=== PATIENT | male | born 1950 | race Caucasian/White ===

== ENCOUNTER → 2023-08-04 16:47 | Outpatient (REF) | payer OTHER, SELFPAY ==
[2023-08-04 17:15] LABS: % Basophils 0.8 % (0-2); % Eosinophils 0.8 % (0-6); % Lymphocytes 31.1 % (20.5-51.1); % Monocytes 9.4 % (1.7-9.3); % Neutrophils 57.9 % (42.2-75.2); Absolute Lymphocytes 1.2 10^3/uL (1.2-3.4); Absolute Monocytes 0.4 10^3/uL (0.1-0.6); Absolute Neutrophils 2.3 10^3/uL (1.4-6.5); Hematocrit 31.4 % (39.0-52.0); Hemoglobin 10.7 g/dL (13.0-18.0); Mean Corp Hgb Conc. 34.1 g/dL (33.0-37.0); Mean Corpuscular Hgb 33.3 pg (27.0-31.0); Mean Corpuscular Volume 97.8 fL (80.0-94.0); Mean Platelet Volume 10.2 fL (7.4-10.4); Nucleated Red Blood Cells % 0 % (-); Platelet Count 201 10^3/uL (130-400); Red Blood Cell Count 3.21 10^6/uL (4.70-6.10); Red Cell Dist. Width 14.6 % (11.5-14.5); White Blood Cell Count 3.9 10^3/uL (4.8-10.8)
[2023-08-07 14:03] LABS: Free Kappa Light Chains,Quant 18.47 mg/L (3.30-19.40); Free Lambda Light Chains,Quant 13.59 mg/L (5.71-26.30); Kappa/Lambda Fr Light Ratio 1.36 (0.26-1.65)
== END ==
LOC: REG 16:47
PROVIDERS: ATTENDING PHYSICIAN Family Medicine
DX: D61.818 Other pancytopenia (principal)
CPT/HCPCS: 36415; 83521; 85025

== ENCOUNTER → 2023-10-09 15:54 | Outpatient (REF) | payer OTHER, SELFPAY | LOC: DHCBC HW 15:54 | PROVIDERS: ATTENDING PHYSICIAN Internal Medicine Cardiovascular Disease; FAMILY PHYSICIAN Family Medicine | DX: I25.10 Atherosclerotic heart disease of native coronary artery without angina pectoris (principal); I25.2 Old myocardial infarction; I35.1 Nonrheumatic aortic (valve) insufficiency; I77.810 Thoracic aortic ectasia | CPT/HCPCS: 93306 ==

== ENCOUNTER → 2024-10-01 15:30 | Outpatient (REF) | payer OTHER, SELFPAY | LOC: HWRAD 15:30 | PROVIDERS: ATTENDING PHYSICIAN Family Medicine | DX: Z15.89 Genetic susceptibility to other disease (principal) | CPT/HCPCS: 72202 ==

== ENCOUNTER → 2024-11-11 14:07 | Outpatient (REF) | payer OTHER, SELFPAY | LOC: HWRAD 14:07 | PROVIDERS: ATTENDING PHYSICIAN Student in an Organized Health Care Education/Training Program; FAMILY PHYSICIAN Family Medicine | DX: M41.9 Scoliosis, unspecified (principal) | CPT/HCPCS: 77080 ==

== ENCOUNTER 2024-12-03 07:54 | Inpatient (IN) | payer OTHER, SELFPAY ==
[2024-12-01] VITALS (8 sets, daily range): BP systolic 116–128; BP diastolic 65–88; BMI 23.0; BMI 21.7
--- NOTE | 2024-12-01 13:22 | ED.GENMED ---
History of Present Illness
General
Chief Complaint: Swelling
Source: patient
Exam Limitations: none
Time Seen by Provider: 12/01/24 12:54
Nursing documentation reviewed up to this point in time: agreed with
History of Present Illness
History of Present Illness:
Patient is a 74-year-old male who presents to the ER complaining of left lower leg swelling. He reports on Friday 3 days ago he noticed swelling and discomfort to the top part of his left foot he also noticed mild redness. Since then he has had
painful left foot and can barely walk on the foot and also has swelling to his left lower leg. He denies any injury. Denies any fever or chills. No prior history of DVT or PE. He does reports chronic varicose veins to left leg.
Past History
Past History
ED Past Medical History: None
ED Past Surgical History: None
Social History
Tobacco: Non-smoker
Alcohol: Occasional
Drug: None
Personal: Single
Employment: Employed
Family History
Family History: Early CAD and CAD
Review of Systems
Review of Systems
Allergies reviewed?: Yes
Constitutional: Reports fatigue
Phy Exam
General Physical Exam
General Presentation: no apparent distress
General age: appears stated age
General Skin: warm and dry
General Mental: alert
General Hydration: appears well hydrated
Cardiovascular Exam
Cardiovascular Exam: regular rate/rhythm, no murmur and normal peripheral pulses
Pulmonary Exam
Pulmonary Exam: lungs clear and no respiratory distress
Neurological Exam
Neurological Exam: alert and oriented x3
Musculoskeletal Exam
Musculoskeletal Exam: other (lle with + strong distal pulses+ erythema to dorsal foot swelling to foot ankle lower leg + Tenderness to dorsal foot)
Skin Exam
Skin Exam: normal color and warm/dry
Psychiatric Exam
Psychiatric Exam: normal mood/affect
Scores
Heart Failure Risk
Heart Failure Risk Score: Not Applicable
Course
Orders/Labs/Results
Orders:
Orders
12/01/24 13:15
IV Insert/Care/Rem.- Treatment PRN
Foot, Left 3 View [CR Foot - Left Min 3 Views] Urgent
Comment:
Reason For Exam: swelling/redness
Venous Doppler Lwr Ext Left [US Periph Venous LOWER Ext LT] Urgent
Comment:
Reason For Exam: pain
12/01/24 13:30
Complete Blood Count/With Diff Urgent
Comprehensive Metabolic Panel Urgent
12/01/24 15:40
Acetaminophen [Tylenol] 650 mg PO NOW STA
Abnormal Lab Results
12/01/24
13:30
RBC 2.82 L 10^6/uL
(4.70-6.10)
Hgb 9.5 L g/dL
(13.0-18.0)
Hct 27.7 L %
(39.0-52.0)
MCV 98.2 H fL
(80.0-94.0)
MCH 33.7 H pg
(27.0-31.0)
MPV 10.8 H fL
(7.4-10.4)
Absolute Lymphs (auto) 0.6 L 10^3/uL
(1.2-3.4)
Neutrophils % 78.0 H %
(42.2-75.2)
Lymphocytes % 11.4 L %
(20.5-51.1)
Sodium 132 L mmol/L
(135-145)
Glucose 101 H mg/dl
(70-99)
Total Protein 6.2 L g/dl
(6.3-8.2)
Albumin 3.4 L g/dl
(3.5-5.0)
12/01/24 13:30
12/01/24 13:30
Vital Signs
Initial and Last Documented VS:
Initial Vital Signs
Temp Pulse Resp BP Pulse Ox
98.8 F 101 16 128/88 94
12/01/24 12:16 12/01/24 12:16 12/01/24 12:16 12/01/24 12:16 12/01/24 12:16
Last Documented Vital Signs
Temp Pulse Resp BP Pulse Ox
98.8 F 87 25 119/84 94
12/01/24 12:16 12/01/24 17:06 12/01/24 17:06 12/01/24 17:06 12/01/24 15:45
MDM/Problems Addressed
MDM/Problems Addressed:
Patient presented with redness and swelling to the left foot now with increasing swelling of the lower leg unable to bear weight. He denies any fever chills and is nontoxic however is unable to bear weight on this leg. Patient has dorsal redness
and tenderness. Ultrasound x-ray negative. White count normal. Will admit for IV antibiotics
*Radiology
Radiology exam reviewed: radiology read reviewed
*Pulse Oximetry
Patient hypoxic: no
*Critical Care Note
Total Time (30-74mins, 75-104mins- exclusive of procedures): Not Applicable
ED Attending Note
-
Portions of this chart may have been created with voice recognition software.� Occasional wrong word or��sound alike� substitutions may have occurred due to the inherent limitations of voice recognition software.
Discharge Plan
Departure
Patient Disposition: Admit
Date of Disposition: 12/01/24
Time of Disposition: 17:27
Admit to: Med/Surg
Admit to doctor: hospitalist
Presentation/result/management discussed w/ accepting MD/DO: Hospitalist
Patient with high blood pressure during this ER visit?: Yes
Condition: Fair
Covid-19: Not Applicable
Discharge Problem:
Cellulitis of foot, left
Prescriptions:
No Action
aspirin 325 mg Tablet
650 mg PO DAILYPRN PRN (Reason: MILD PAIN)
amlodipine [Norvasc] 10 mg Tablet
10 mg PO DAILY
lisinopril 40 mg Tablet
40 mg PO DAILY
metoprolol succinate [Toprol XL] 50 mg Tablet Extended Release 24 Hr
50 mg PO DAILY
atorvastatin 40 MG tablet
40 mg PO QPM
aspirin 81 MG tablet,chewable
81 mg PO DAILY
Referrals:
Yayo Philip DO [Family Provider, Family Practice]
Interventions
Interventions:
*Risk Screen - Suicide Last Done: 12/01/24 12:16
*General Assessment Last Done: 12/01/24 12:16
*Neglect/Abuse Screening Last Done: 12/01/24 12:16
*ED- Fall Risk Assessment Last Done: 12/01/24 13:33
ED- Cardiac Assessment Last Done: 12/01/24 13:31
ED- Pulmonary Assessment Last Done: 12/01/24 13:31
ED-Skin Assessment Last Done: 12/01/24 13:31
Discharge Date and Time
Print Language: MAORI
[2024-12-01 13:40] LABS: % Basophils 0.4 % (0-2); % Eosinophils 1.3 % (0-6); % Immature Granulocytes 0.4 % (0-0.5); % Lymphocytes 11.4 % (20.5-51.1); % Monocytes 8.5 % (1.7-9.3); Absolute Eosinophils 0.1 10^3/uL (0-0.7); Absolute Lymphocytes 0.6 10^3/uL (1.2-3.4); Absolute Monocytes 0.5 10^3/uL (0.1-0.6); Absolute Neutrophils 4.1 10^3/uL (1.4-6.5); Hematocrit 27.7 % (39.0-52.0); Hemoglobin 9.5 g/dL (13.0-18.0); Mean Corp Hgb Conc. 34.3 g/dL (33.0-37.0); Mean Corpuscular Hgb 33.7 pg (27.0-31.0); Mean Corpuscular Volume 98.2 fL (80.0-94.0); Mean Platelet Volume 10.8 fL (7.4-10.4); Nucleated Red Blood Cells % 0 % (-); Platelet Count 255 10^3/uL (130-400); Red Blood Cell Count 2.82 10^6/uL (4.70-6.10); Red Cell Dist. Width 14.4 % (11.5-14.5); White Blood Cell Count 5.3 10^3/uL (4.8-10.8)
[2024-12-01 14:19] LABS: ALT (SGPT) 22 U/L (0-50); AST (SGOT) 21 U/L (17-59); Albumin 3.4 g/dl (3.5-5.0); Alkaline Phosphatase 92 U/L (38-126); Blood Urea Nitrogen 15 mg/dl (9-20); Calcium 9.1 mg/dl (8.4-10.2); Carbon Dioxide 24 mmol/L (22-30); Chloride 100 mmol/L (98-107); Glucose 101 mg/dl (70-99); Potassium 3.8 mmol/L (3.5-5.1); Sodium 132 mmol/L (135-145); Total Bilirubin 0.8 mg/dl (0.2-1.3); Total Protein 6.2 g/dl (6.3-8.2); eGFR > 60.00
[2024-12-01] MEDS: TYLENOL 650 MG PO ×2 (15:46→23:35)
--- NOTE | 2024-12-01 17:36 | HPS.HSE ---
Family Physician
-
Family Physician: Yayo Philip
Chief Complaint
-
Left lower extremity swelling
History of Present Illness
74 y/o M with PMHx:
CAD with h/o STEMI s/p mid-RCA LULU in September 2017
Essential hypertension
Hyperlipidemia
who c/o LLE swelling. Approximately 4 to 5 days ago the patient began developing discoloration in his left lower extremity. He then developed edema as well as pain in his left foot. It got to the point where he was unable to ambulate on the foot.
He presented to the hospital for this reason. He did not have any antibiotic therapy prior to coming to the ER. He denies any chest pain, shortness of breath, nausea, vomiting, diarrhea, or fevers. No other acute complaints.
Medical History
Past Medical History
Past Medical History: Reports CAD, HTN and Hypercholesterolemia
Past Surgical History: Reports None (N/A)
Social History
Tobacco: Non-smoker
Alcohol: Occasional
Drug: None
Family History
Family History: Not pertinent
Allergies / Home Medications
Allergies reflects when Allergies were last updated in [facility].
Home Medications with original date entered in [facility]
Allergy/Medication List:
Allergies
Allergy/AdvReac Type Severity Reaction Status Date / Time
No Known Allergies Allergy Verified 12/01/24 12:18
Home Medications
amlodipine 10 mg tablet (Norvasc) 10 mg PO DAILY Blood Pressure 12/01/24
aspirin 325 mg tablet 650 mg PO DAILYPRN PRN MILD PAIN 12/01/24
aspirin 81 mg chewable tablet 81 mg PO DAILY Heart Disease/Condition 12/01/24
atorvastatin 40 mg tablet 40 mg PO QPM High Cholesterol 12/01/24
lisinopril 40 mg tablet 40 mg PO DAILY Blood Pressure 12/01/24
metoprolol succinate 50 mg tablet,extended release 24 hr (Toprol XL) 50 mg PO DAILY Blood Pressure 12/01/24
Review of Systems
-
History Source: Patient
A 12 point ROS was completed and negative except as noted: Yes
Physical Exam
Vital Signs
Vital Signs
Temp Pulse Resp BP Pulse Ox
98.8 F 87 25 119/84 94
12/01/24 12:16 12/01/24 17:06 12/01/24 17:06 12/01/24 17:06 12/01/24 15:45
Physical Exam
General: Other (.)
Laboratory Results
-
12/01/24 13:30
12/01/24 13:30
Laboratory Results
Total Bilirubin 0.8 mg/dl (0.2-1.3) 12/01/24 13:30
AST 21 U/L (17-59) 12/01/24 13:30
ALT 22 U/L (0-50) 12/01/24 13:30
Alkaline Phosphatase 92 U/L (38-126) 12/01/24 13:30
Impression/Plan
-
Gen: NAD, AAOx3.
Eyes: EOMI, PERRLA, no scleral icterus.
Neck: supple.
CV: RRR, +S1/S2, no m/r/g.
Resp: CTAB, no rales, wheezes, or rhonchi.
Abd: +BS, soft, NT, ND
Skin: Left foot cellulitis that is mild and located on the dorsal aspect of the foot and extends to the distal aspect of the left leg. On the medial aspect of the foot there is a lipoma.
Neuro: CN 2-12 intact, non-focal.
Psych: Normal mood and affect.
LLE U/S: No evidence of DVT of the left lower extremity.
L foot Xray: No acute fracture or dislocation. Moderate degenerative changes of the midfoot, worst at the first tarsometatarsal articulation. Scattered mild osteoarthritic changes of the interphalangeal and first metatarsophalangeal joints. No
erosions are evident. No radiographic evidence for inflammatory arthropathy. Mild diffuse soft tissue swelling about the foot.
Acute LLE cellulitis:
-cont Ancef started in the ER
-compression/elevation
Other problems:
CAD with h/o STEMI s/p mid-RCA LULU in September 2017: cont ASA/statin/BB
Essential hypertension: cont BB/ACEi
Hyperlipidemia: cont statin
Hyponatremia, mild, trend
FULL/Lovenox
[2024-12-01] MEDS: ANCEF 5 IV (17:48)
[2024-12-01] MEDS: ROXICODONE 5 MG PO (20:45)
--- NOTE | 2024-12-01 21:54 | PTCARENOTE ---
Patient arrived from ER as a sinker puller. Patient oriented to the room. Patient is AAO x4. Call null is within reach and fall education provided and reinforced.
[2024-12-02] MEDS: ROXICODONE 5 MG PO ×2 (00:48→19:53)
[2024-12-02] MEDS: ANCEF 10 IV ×3 (01:51→17:13)
[2024-12-02 07:31] LABS: Hematocrit 24.3 % (39.0-52.0); Hemoglobin 8.4 g/dL (13.0-18.0); Mean Corp Hgb Conc. 34.6 g/dL (33.0-37.0); Mean Corpuscular Hgb 33.7 pg (27.0-31.0); Mean Corpuscular Volume 97.6 fL (80.0-94.0); Platelet Count 248 10^3/uL (130-400); Red Blood Cell Count 2.49 10^6/uL (4.70-6.10); Red Cell Dist. Width 14.3 % (11.5-14.5); White Blood Cell Count 4.7 10^3/uL (4.8-10.8)
[2024-12-02 07:59] LABS: Blood Urea Nitrogen 13 mg/dl (9-20); Calcium 8.4 mg/dl (8.4-10.2); Carbon Dioxide 27 mmol/L (22-30); Chloride 101 mmol/L (98-107); Estimated Creatinine Clearance 82 ml/min; Glucose 91 mg/dl (70-99); Potassium 3.8 mmol/L (3.5-5.1); Sodium 133 mmol/L (135-145); eGFR > 60.00
[2024-12-02] MEDS: ZESTRIL 40 MG PO (08:11)
[2024-12-02] MEDS: NORVASC 10 MG PO (08:11)
[2024-12-02] MEDS: TOPROL XL 50 MG PO (08:11)
[2024-12-02] MEDS: LOW STRENGTH ASPIRIN 81 MG PO (08:11)
[2024-12-02] MEDS: TYLENOL 650 MG PO ×3 (08:17→22:38)
[2024-12-02 08:46] VITALS: BP 117/72
--- NOTE | 2024-12-02 11:20 | W.PN.HOSP.TC ---
Today's Communication/Plan
-
see plan
Assessment / Plan
Assessment / Plan
Gen: NAD, AAOx3.
Eyes: EOMI, PERRLA, no scleral icterus.
Neck: supple.
CV: remains RRR, +S1/S2, no m/r/g.
Resp: CTAB anteriorly, no rales, wheezes, or rhonchi.
Abd: +BS, soft, NT, ND
Skin: Left foot cellulitis has nearly resolved. On the medial aspect of the foot there is a lipoma and soft tissue edema.
Neuro: CN 2-12 intact, non-focal.
Psych: Normal mood and affect.
LLE U/S: No evidence of DVT of the left lower extremity.
L foot Xray: No acute fracture or dislocation. Moderate degenerative changes of the midfoot, worst at the first tarsometatarsal articulation. Scattered mild osteoarthritic changes of the interphalangeal and first metatarsophalangeal joints. No
erosions are evident. No radiographic evidence for inflammatory arthropathy. Mild diffuse soft tissue swelling about the foot.
Acute LLE cellulitis:
-cont Ancef
-c/s podiatry
Other problems:
CAD with h/o STEMI s/p mid-RCA LULU in September 2017: cont ASA/statin/BB
Essential hypertension: cont BB/ACEi
Hyperlipidemia: cont statin
Hyponatremia, mild, trend
FULL/Lovenox
Anticipated Discharge: Within 24 hours
Subjective/Interval History
-
Date of Service: December 02, 2024
Objective Data
-
Labs:
Laboratory Results
12/02/24
06:34
WBC 4.7 L
Hgb 8.4 L
Hct 24.3 L
Plt Count 248
Sodium 133 L
Potassium 3.8
Chloride 101
Carbon Dioxide 27
BUN 13
Creatinine 0.8
Glucose 91
Calcium 8.4
Vital Signs:
Vital Signs
Temp Pulse Resp BP Pulse Ox
98.2 F 71 16 117/72 97
12/02/24 08:46 12/02/24 08:46 12/02/24 08:46 12/02/24 08:46 12/02/24 08:46
I&O
12/01/24 12/02/24 12/03/24
06:59 06:59 06:59
Output Total 200 / 200
Balance -200 / -200
--- NOTE | 2024-12-02 12:56 | CM ---
CM reviewed chart, patient seen bedside, initial assessment completed. Patient resides independently in a multiple story home, mostly resides on first floor, few steps to enter (from porch then into home). Patient denies use of DME, denies VN/SNF
history. Patient confirms PCP Dr. Philip, pharmacy used [facility], unsure if he has prescription coverage. FRIED form verbally reviewed, provided with copy, placed in chart. Patient reports concern about going home, CM discussed therapy has
been ordered and will assess patient, patient reports if necessary he would go to rehab. CM did ask patient if he has local friends/family to support patient if needed, patient reports he does. CM will continue to follow for all discharge planning
needs.
Plan; PT to evaluate patient, home vs VN, pt agreeable to SNF if needed
[2024-12-02 14:17] VITALS: BP 91/60; PULSE 81
[2024-12-02 15:38] VITALS: BP 91/53
[2024-12-02] MEDS: LOVENOX 40 MG SC (17:12)
[2024-12-02] MEDS: LIPITOR 40 MG PO (17:12)
--- NOTE | 2024-12-02 19:52 | W.CS.POD ---
Consult Summary - Podiatry
-
This patient is a 74 year old male, with PMH of CAD, HTN and hyperlipidemia, admitted 12/01/24 for cellulitis of the left foot. The patient describes development of a small wound along the medial aspect of the left foot on 11/27/24 that began draining
clear fluid with redness reported over the top of the foot. This was followed by sudden progression of severe swelling, redness and pain extending to the ankle in the days to follow. The pain became so severe he could not bear weight on the foot,
precipitating his visit to the ER. He denies any fever, chills or sweat, nor any traumatic onset of symptoms, but recalls developing the blister/wound perhaps from a pair of shoes. No tingling, burning or numbing sensations to the LE's, nor any
prior history of lower extremity wounds. He does relate a history of varicose veins of he left LE.
Afebrile, VSS
WBC 5.3 on admission, with left shift.
12/01/24 XRAY, Left foot: No acute fracture or dislocation. Moderate degenerative changes, ectopic bone about the first metatarsal-medial cuneiform joint. No osseous erosion, periosteal reaction or cortical disruption noted. No radiographic evidence
for inflammatory arthropathy. Mild diffuse soft tissue swelling about the foot.
12/01/24 Peripheral venous U/S: The left common femoral, superficial femoral, popliteal and proximal posterior tibial veins are patent and compressible with normal flow. No evidence of DVT.
Clinically, pedal pulses are palpable bilaterally. Moderate residual edema and venous stasis pigmentation of the left foot compared to the right, however light peeling of skin with absence of erythema/cellulitis suggests the acute inflammatory
process is resolving. The area of skin along the 1.5cm bony prominence of the first metatarsal base medially exhibits a possible healed/closed wound site, currently stable. Diffuse, mild pain involving this area as well as the dorsal midfoot
diffusely noted, left. Pes planus deformity, left more severe than right. No loss of protective sensation, bilaterally.
Assessment:
Cellulitis Left foot with likely source being a since closed wound/blister along the medial midfoot, responding well to IV antibiotics.
Charcot osteo-arthropathy not likely as neuropathy is not a factor and radiographic changes are isolated and non-destructive.
Continue IV Ancef. No wound to culture at this point.
Will follow progress over next day or two.
Consider MRI should symptoms/process persist.
[2024-12-02] MEDS: MELATONIN 5 MG PO (22:38)
[2024-12-02 23:00] VITALS: BP 103/54
[2024-12-03] VITALS (8 sets, daily range): BP systolic 78–104; BP diastolic 43–63; PULSE 68; O2SAT 97
[2024-12-03] MEDS: ANCEF 10 IV ×3 (02:50→18:11)
[2024-12-03] MEDS: ROXICODONE 5 MG PO (02:57)
[2024-12-03] MEDS: ZESTRIL 40 MG PO (10:14)
[2024-12-03] MEDS: LOW STRENGTH ASPIRIN 81 MG PO (10:16)
[2024-12-03] MEDS: TOPROL XL 50 MG PO (10:16)
[2024-12-03] MEDS: NORVASC 10 MG PO (10:17)
--- NOTE | 2024-12-03 10:54 | CM ---
CM reviewed chart, patient seen bedside, discussed PT recommendations of SNF. Patient would like to see how he progresses in therapy, discussed option for VN, patient would prefer outpatient therapy if return home. PT recommending RW for patient if
returning home. Patient remains on IV antibiotics. Patient upgraded to inpatient status, IMM reviewed, provided with copy, placed in chart. CM will continue to follow for all discharge planning needs.
Plan; SNF vs home with outpatient PT/OT, if home recommending RW
--- NOTE | 2024-12-03 10:58 | W.PN.HOSP.TC ---
Today's Communication/Plan
-
see plan
Assessment / Plan
Assessment / Plan
Gen: NAD, AAOx3.
Eyes: EOMI, PERRLA, no scleral icterus.
Neck: supple.
CV: continues to remain RRR, +S1/S2, no m/r/g.
Resp: remains CTAB anteriorly, no rales, wheezes, or rhonchi.
Abd: +BS, soft, NT, ND
Skin: Left foot cellulitis has nearly resolved. On the medial aspect of the foot there is a lipoma and soft tissue edema (improved from yesterday).
Neuro: CN 2-12 intact, non-focal.
Psych: Normal mood and affect.
LLE U/S: No evidence of DVT of the left lower extremity.
L foot Xray: No acute fracture or dislocation. Moderate degenerative changes of the midfoot, worst at the first tarsometatarsal articulation. Scattered mild osteoarthritic changes of the interphalangeal and first metatarsophalangeal joints. No
erosions are evident. No radiographic evidence for inflammatory arthropathy. Mild diffuse soft tissue swelling about the foot.
Acute LLE cellulitis:
-cont Ancef
-podiatry following
-check MRI L foot
L hip pain:
-check L Hip Xray
Other problems:
CAD with h/o STEMI s/p mid-RCA LULU in September 2017: cont ASA/statin/BB
Essential hypertension: cont BB/ACEi
Hyperlipidemia: cont statin
Hyponatremia, mild, trend
FULL/Lovenox
Anticipated Discharge: Within 24 hours
Subjective/Interval History
-
Date of Service: December 03, 2024
Pt reports L hip pain to PT. c/o persistent L foot pain. States L foot edema improving.
Objective Data
-
Vital Signs:
Vital Signs
Temp Pulse Resp BP Pulse Ox
97.8 F 69 16 103/62 97
12/03/24 08:00 12/03/24 08:00 12/03/24 08:00 12/03/24 08:00 12/03/24 08:00
I&O
12/02/24 12/03/24 12/04/24
06:59 06:59 06:59
Intake Total 680 / 680
Output Total 200 / 200 750 / 750
Balance -200 / -200 -70 / -70
[2024-12-03] MEDS: NSS 1000 IV ×2 (18:11→20:18)
[2024-12-03] MEDS: LOVENOX 40 MG SC (18:11)
[2024-12-03] MEDS: LIPITOR 40 MG PO (18:11)
[2024-12-03 18:40] LABS: Blood Urea Nitrogen 20 mg/dl (9-20); Calcium 8.7 mg/dl (8.4-10.2); Carbon Dioxide 30 mmol/L (22-30); Chloride 99 mmol/L (98-107); Estimated Creatinine Clearance 82 ml/min; Glucose 100 mg/dl (70-99); Potassium 4.7 mmol/L (3.5-5.1); Sodium 134 mmol/L (135-145); eGFR > 60.00
[2024-12-03 19:38] LABS: Hepatitis C Antibody Negative (Negative)
[2024-12-03] MEDS: TYLENOL 650 MG PO (20:19)
[2024-12-04 00:45] VITALS: BP 98/60
[2024-12-04] MEDS: TYLENOL 650 MG PO ×3 (00:57→20:21)
[2024-12-04] MEDS: ANCEF 10 IV ×3 (00:59→17:44)
[2024-12-04] MEDS: NSS 1000 IV (05:15)
[2024-12-04 07:00] VITALS: BP 116/74
[2024-12-04 07:26] LABS: Blood Urea Nitrogen 16 mg/dl (9-20); Calcium 8.5 mg/dl (8.4-10.2); Carbon Dioxide 29 mmol/L (22-30); Chloride 104 mmol/L (98-107); Estimated Creatinine Clearance 94 ml/min; Glucose 93 mg/dl (70-99); Potassium 4.6 mmol/L (3.5-5.1); Sodium 137 mmol/L (135-145); eGFR > 60.00
[2024-12-04] MEDS: TOPROL XL 50 MG PO (08:28)
[2024-12-04] MEDS: LOW STRENGTH ASPIRIN 81 MG PO (08:29)
[2024-12-04] MEDS: NORVASC 10 MG PO (08:29)
[2024-12-04] MEDS: NSS IV ×2 (10:38→17:50)
--- NOTE | 2024-12-04 10:41 | W.PN.HOSP.TC ---
Today's Communication/Plan
-
see plan
Assessment / Plan
Assessment / Plan
Gen: remains NAD, AAOx3.
Eyes: EOMI, PERRLA, no scleral icterus.
Neck: supple.
CV: RRR, +S1/S2, no m/r/g.
Resp: CTAB anteriorly, no rales, wheezes, or rhonchi.
Abd: +BS, soft, NT, ND
Skin: Left foot cellulitis continues to improved. On the medial aspect of the foot there is a lipoma and soft tissue edema (continues to improve daily).
Neuro: remains CN 2-12 intact, non-focal.
Psych: Normal mood and affect.
LLE U/S: No evidence of DVT of the left lower extremity.
L foot Xray: No acute fracture or dislocation. Moderate degenerative changes of the midfoot, worst at the first tarsometatarsal articulation. Scattered mild osteoarthritic changes of the interphalangeal and first metatarsophalangeal joints. No
erosions are evident. No radiographic evidence for inflammatory arthropathy. Mild diffuse soft tissue swelling about the foot.
L hip Xray: Moderate osteoarthrosis of the bilateral hips.
MRI L foot:
1. SEVERE POLYARTICULAR ARTHRITIS throughout the LEFT MIDFOOT involving the TARSOMETATARSAL and NAVICULOCUNEIFORM JOINTS with severe joint space loss, osseous erosions, and enhancing subchondral bone marrow edema. Diagnostic possibilities are (1)
SEVERE NEUROPATHIC ARTHROPATHY, (2) an inflammatory arthritis, or (3) less likely septic arthritis given the absence of an overlying ulcer or wound.
2. Severe pes planus deformity.
3. Severe acute muscle denervation.
4. Severe diffuse subcutaneous edema suggesting SEVERE CELLULITIS.
Acute LLE cellulitis:
-MRI L foot above
-cont Ancef
-podiatry following
L hip pain:
-due to AO as per L Hip Xray
Other problems:
CAD with h/o STEMI s/p mid-RCA LULU in September 2017: cont ASA/statin/BB
Essential hypertension: cont BB, ACEi stopped with hypotension
Hyperlipidemia: cont statin
Hyponatremia, mild, trend
FULL/Lovenox
Anticipated Discharge: 24 - 48 hours
Subjective/Interval History
-
Date of Service: December 04, 2024
No new complaints.
Objective Data
-
Labs:
Laboratory Results
12/04/24
06:39
Sodium 137
Potassium 4.6
Chloride 104
Carbon Dioxide 29
BUN 16
Creatinine 0.7
Glucose 93
Calcium 8.5
Vital Signs:
Vital Signs
Temp Pulse Resp BP Pulse Ox
97.9 F 66 18 116/74 100
12/04/24 07:00 12/04/24 08:28 12/04/24 07:00 12/04/24 08:28 12/04/24 08:00
I&O
12/03/24 12/04/24 12/05/24
06:59 06:59 06:59
Intake Total 680 / 680 540 / 540
Output Total 750 / 750 1450 / 1450
Balance -70 / -70 -910 / -910
--- NOTE | 2024-12-04 13:12 | W.PN.POD ---
Today's Communication
Today's Communication
Arthritic process in left foot at this point.
Patient may be followed on an outpatient basis.
Assessment / Plan
-
Assessment/Plan:
Cellulitis Left foot possibly sourced from a now closed wound/blister along the medial midfoot, clinically resolved.
Diffuse edema and pain of the left midfoot due to underlying polyarthropathy likely primary issue at this point.
Discussed MRI findings with Dr. Abreu. No infectious bony process noted. No abscess.
Arthropathy of the midfoot is not due to trauma in the absence of any injury, nor is this due to Charcot given the absence of underlying diabetes or neuropathy. Tarsometatarsal joint degradation without MTPJ/forefoot involvement likely rules out RA
as a cause as well. However, a symptomatic, polyneuropathy persists.
From a podiatry standpoint, this patient may be discharged and followed on an out-patient basis. Discussed with Hospitalist.
Suggest PO Keflex 500mg TID for 7 days upon discharge as a precautionary measure.
Recommended CAM Walker, partial weightbearing on the left foot with the use of a walker.
Recommend PT evaluation.
Subjective
Chief Complaint
Left foot swelling and pain.
Subjective
Patient denies any fever, chills or sweats. He is experiencing low grade pain over the top and bottom of the left foot, exacerbated by weight bearing.
Objective
Temp Pulse Resp BP Pulse Ox
97.9 F 66 18 116/74 100
12/04/24 07:00 12/04/24 08:28 12/04/24 07:00 12/04/24 08:28 12/04/24 08:00
12/02/24 06:34
12/04/24 06:39
Vital Signs and Lab results were reviewed.
Pedal pulses palpable, bilaterally. Reduction in diffuse edema about the left foot. Post inflammatory pigmentation without overt erythema or cellulitis present. Small eschar along the medial midfoot, dry and stable, perhaps site of blister/closed
wound over bony prominence. No flucctuance or boggyness overlying this area. Pain on palpation of the medial dorsal and plantar tarsometatarsal joints, left foot. Pes planus deformity, left more severe than right. No loss of protective sensation,
bilaterally.
Afebrile.
WBC 4.7
12/01/24 XRAY, Left foot: No acute fracture or dislocation. Moderate degenerative changes, ectopic bone about the first metatarsal-medial cuneiform joint. No osseous erosion, periosteal reaction or cortical disruption noted. No radiographic evidence
for inflammatory arthropathy. Mild diffuse soft tissue swelling about the foot.
12/01/24 Peripheral venous U/S: The left common femoral, superficial femoral, popliteal and proximal posterior tibial veins are patent and compressible with normal flow. No evidence of DVT.
12/04/24 MRI of left foot: LEFT FOREFOOT:
IMPRESSION:
There is no MRI evidence for erosive arthropathy in the forefoot. Cutaneous edema. There is no tenosynovitis around the flexor or extensor tendons.
1. 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 Diagnostic possibilities are (1)
Severe neuropathic arthropathy (2) an inflammatory arthritis, or (3) less likely septic arthritis given the absence of an overlying ulcer or wound.
2. Severe pes planus deformity.
3. Severe acute muscle denervation.
4. Severe diffuse subcutaneous edema suggesting severe cellulitis.
--- NOTE | 2024-12-04 13:30 | CM ---
Addendum entered by GAGE Hart 12/04/24 14:39:
Met with patient. He will consider SNf [facility] or [facility] if he does not do well with PT tomorrow. He does not want home care. Referrals sent in [facility].
Original Note:
Per attending [place] text is says patient may need boot but PT note yesterday indicates PT got him a Left surgical shoe. Waiting for PT to see Friday to see if he needs a boot. PT can issue rolling walker with script from attending. CM asked for
script to be left on chart.
[2024-12-04 15:06] VITALS: BP 106/67
[2024-12-04] MEDS: LIPITOR 40 MG PO (17:43)
[2024-12-04] MEDS: LOVENOX 40 MG SC (17:44)
--- NOTE | 2024-12-04 18:13 | PTCARENOTE ---
Patient's managing pain in left leg well today. States pain has been tolerable today. Has been sitting on side of bed with sit to stand supervised. Eager to discontinue IV fluids. Plan of care ongoing.
[2024-12-04 23:00] VITALS: BP 107/65
[2024-12-04] MEDS: MELATONIN 5 MG PO (23:12)
[2024-12-05] MEDS: ANCEF 10 IV ×3 (02:37→17:05)
[2024-12-05] MEDS: TYLENOL 650 MG PO (02:44)
[2024-12-05 08:00] VITALS: BP 127/80
[2024-12-05] MEDS: TOPROL XL 50 MG PO (09:14)
[2024-12-05] MEDS: NORVASC 10 MG PO (09:14)
[2024-12-05] MEDS: LOW STRENGTH ASPIRIN 81 MG PO (09:14)
--- NOTE | 2024-12-05 09:14 | W.PN.HOSP.TC ---
Addendum entered and electronically signed by Miki Montemayor MD 12/05/24 15:44:
Total time spent on d/c = 33 min. This included today's physical exam, progress note, review of laboratory and diagnostic data, preparation of discharge documents and prescriptions, and discussions about the pt's hospital course and discharge plan
with the patient and other medical support specialist involved in the patient's care.
Original Note:
Today's Communication/Plan
-
d/c
Assessment / Plan
Assessment / Plan
Gen: Continues to remain NAD, AAOx3.
Eyes: EOMI, PERRLA, no scleral icterus.
Neck: supple.
CV: Remains RRR, +S1/S2, no m/r/g.
Resp: CTAB anteriorly, no rales, wheezes, or rhonchi.
Abd: +BS, soft, NT, ND
Skin: Left foot cellulitis has almost resolved. On the medial aspect of the foot there is a lipoma and soft tissue edema (continues to improve daily).
Neuro: remains CN 2-12 intact, non-focal.
Psych: Normal mood and affect.
LLE U/S: No evidence of DVT of the left lower extremity.
L foot Xray: No acute fracture or dislocation. Moderate degenerative changes of the midfoot, worst at the first tarsometatarsal articulation. Scattered mild osteoarthritic changes of the interphalangeal and first metatarsophalangeal joints. No
erosions are evident. No radiographic evidence for inflammatory arthropathy. Mild diffuse soft tissue swelling about the foot.
L hip Xray: Moderate osteoarthrosis of the bilateral hips.
MRI L foot:
1. SEVERE POLYARTICULAR ARTHRITIS throughout the LEFT MIDFOOT involving the TARSOMETATARSAL and NAVICULOCUNEIFORM JOINTS with severe joint space loss, osseous erosions, and enhancing subchondral bone marrow edema. Diagnostic possibilities are (1)
SEVERE NEUROPATHIC ARTHROPATHY, (2) an inflammatory arthritis, or (3) less likely septic arthritis given the absence of an overlying ulcer or wound.
2. Severe pes planus deformity.
3. Severe acute muscle denervation.
4. Severe diffuse subcutaneous edema suggesting SEVERE CELLULITIS.
Acute LLE cellulitis:
-MRI L foot above
-cont Ancef
-podiatry following. Case discussed with Dr. Foster at length over the phone on 12/04/24. Pt can be discharged on 7-10 days Keflex with outpt f/u. Will need to NWB or have a boot on LLE.
L hip pain:
-due to AO as per L Hip Xray
Other problems:
CAD with h/o STEMI s/p mid-RCA LULU in September 2017: cont ASA/statin/BB
Essential hypertension: cont BB, ACEi stopped with hypotension
Hyperlipidemia: cont statin
Hyponatremia, mild, trend
FULL/Lovenox
Medically cleared for d/c. Case management aware.
Anticipated Discharge: Today
Subjective/Interval History
-
Date of Service: December 05, 2024
No new complaints.
Objective Data
-
Vital Signs:
Vital Signs
Temp Pulse Resp BP Pulse Ox
97.7 F 62 16 127/80 98
12/05/24 08:00 12/05/24 08:00 12/05/24 08:00 12/05/24 08:00 12/05/24 08:00
I&O
12/04/24 12/05/24 12/06/24
06:59 06:59 06:59
Intake Total 540 / 540 1200 / 1200
Output Total 1450 / 1450 3400 / 3400
Balance -910 / -910 -2200 / -2200
--- NOTE | 2024-12-05 10:21 | CM ---
Addendum entered by Diana Ortiz 12/05/24 14:43:
Patient has been approved for [facility], 5 days skilled LCD 12/09/24, , Auth [id number], bed is available at [facility] today. Auth provided to admissions at [facility].
[facility]
Report [phone]

Addendum entered by Diana Ortiz 12/05/24 11:31:
Last PT/OT notes are from 12/03/24 need updated notes for both PT and OT per insurance.
Original Note:
Chart reviewed and per physician patient has been cleared for discharge today, physical therapy are recommending skilled placement, caseworker met with patient and he is agreeable to [facility], caseworker reached out to admissions at
[facility] and they will review referral.
Plan; Skilled placement at [facility] pending bed availability and Auth.
[2024-12-05 13:08] VITALS: BP 119/63; PULSE 66
[2024-12-05 13:43] VITALS: BP 115/68; PULSE 64; O2SAT 97
--- NOTE | 2024-12-05 15:38 | W.DCSUMMARY ---
Discharge Summary
Discharge Data
Date of Admission: 12/03/24
Date of Discharge: 12/05/24
-
Pending Results: No
Hospital Course
Primary diagnoses:
Acute left lower extremity cellulitis
Secondary diagnoses:
Coronary artery disease with h/o ST elevation myocardial infarction s/p mid-RCA LULU in September 2017
Essential hypertension
Hyperlipidemia
Hyponatremia
Consultants:
Podiatry
Imaging:
LLE U/S: No evidence of DVT of the left lower extremity.
L foot Xray: No acute fracture or dislocation. Moderate degenerative changes of the midfoot, worst at the first tarsometatarsal articulation. Scattered mild osteoarthritic changes of the interphalangeal and first metatarsophalangeal joints. No
erosions are evident. No radiographic evidence for inflammatory arthropathy. Mild diffuse soft tissue swelling about the foot.
L hip Xray: Moderate osteoarthrosis of the bilateral hips.
MRI L foot:
1. SEVERE POLYARTICULAR ARTHRITIS throughout the LEFT MIDFOOT involving the TARSOMETATARSAL and NAVICULOCUNEIFORM JOINTS with severe joint space loss, osseous erosions, and enhancing subchondral bone marrow edema. Diagnostic possibilities are (1)
SEVERE NEUROPATHIC ARTHROPATHY, (2) an inflammatory arthritis, or (3) less likely septic arthritis given the absence of an overlying ulcer or wound.
2. Severe pes planus deformity.
3. Severe acute muscle denervation.
4. Severe diffuse subcutaneous edema suggesting SEVERE CELLULITIS.
Hospital course: 74-year-old male who presented with a chief complaint of left lower extremity swelling as outlined in the H&P done on admission. He was diagnosed with left lower extremity cellulitis greatest in the left foot. All imaging above.
He was placed on Ancef and had significant improvement. He was seen in consultation by podiatry. The case was discussed with Dr. Foster at length over the phone on 12/04/24. The patient was discharged on 7 days Keflex with outpatient follow-up.
He will need to nonweightbearing on his left lower extremity or have a boot on left lower extremity.
Discharge Plan
-
Patient Disposition: Intermediate/SNF
Discharge Diagnosis/Procedures: Acute left lower extremity cellulitis
Condition: Good
Diet: Other diet
Additional Diets: Heart healthy
Activity: Do not bear weight L leg
Driving Restrictions: Not until seen by your Dr
Referrals:
Yayo Philip DO [Family Provider, [facility]] - in less than 1 week
Prescriptions:
New
cephalexin 500 mg capsule
500 mg PO Q6H 7 Days Qty: 28 0RF
Continued
aspirin 325 mg Tablet
650 mg PO DAILYPRN PRN (Reason: MILD PAIN)
amlodipine [Norvasc] 10 mg Tablet
10 mg PO DAILY
metoprolol succinate [Toprol XL] 50 mg Tablet Extended Release 24 Hr
50 mg PO DAILY
atorvastatin 40 MG tablet
40 mg PO QPM
aspirin 81 MG tablet,chewable
81 mg PO DAILY
Discontinued
lisinopril 40 mg Tablet
40 mg PO DAILY
Discharge Orders:
Discharge Patient (As Directed); Ordered 12/05/24
Ordered By: Miki Montemayor
Discharge Date and Time
Print Language: ISRAELI
[2024-12-05 16:00] VITALS: BP 119/75
[2024-12-05] MEDS: LIPITOR 40 MG PO (17:05)
[2024-12-05] MEDS: LOVENOX 40 MG SC (17:05)
[2024-12-05] MEDS: PREVNAR 20 0.5 ML IM (17:11)
--- NOTE | 2024-12-05 18:27 | PTCARENOTE ---
Called for report at rehab; spoke to Savanah. Transport on the way.
== END 2024-12-05 19:00 | DRG 603 ==
LOC: 4 WEST ACU 07:54
PROVIDERS: Nurse Practitioner; ADMITTING PHYSICIAN Internal Medicine; CONSULT PHYSICIAN Podiatrist Foot & Ankle Surgery; EMERGENCY PHYSICIAN Emergency Medicine; FAMILY PHYSICIAN Family Medicine
DX: L03.116 Cellulitis of left lower limb (principal); E87.1 Hypo-osmolality and hyponatremia; M79.89 Other specified soft tissue disorders; I25.10 Atherosclerotic heart disease of native coronary artery without angina pectoris; I10 Essential (primary) hypertension; M19.072 Primary osteoarthritis, left ankle and foot; E78.00 Pure hypercholesterolemia, unspecified; D17.79 Benign lipomatous neoplasm of other sites; I25.2 Old myocardial infarction; Z82.49 Family history of ischemic heart disease and other diseases of the circulatory system; Z79.82 Long term (current) use of aspirin
CPT/HCPCS: 73502; 73630; 73720; 80048; 80053; 85025; 85027; 86803; 90677; 93971; 96374; 97116; 97162; 97166; 97530; 97535; 99285; A9575; G0009

== ENCOUNTER → 2025-02-01 13:06 | Outpatient (REF) | payer OTHER, SELFPAY | LOC: HWRCS 13:06 | PROVIDERS: ATTENDING PHYSICIAN Nurse Practitioner; FAMILY PHYSICIAN Family Medicine | DX: I95.89 Other hypotension (principal) | CPT/HCPCS: 93306 ==

== ENCOUNTER → 2025-03-02 16:53 | Outpatient (REF) | payer OTHER, SELFPAY | LOC: RAD 16:53 | PROVIDERS: ATTENDING PHYSICIAN Internal Medicine Cardiovascular Disease; FAMILY PHYSICIAN Family Medicine | DX: I77.810 Thoracic aortic ectasia (principal) | CPT/HCPCS: 71250 ==

== ENCOUNTER → 2025-03-18 14:58 | Outpatient (REF) | payer OTHER, SELFPAY | LOC: RAD 14:58 | PROVIDERS: ATTENDING PHYSICIAN Family Medicine | DX: I87.2 Venous insufficiency (chronic) (peripheral) (principal); S81.802A Unspecified open wound, left lower leg, initial encounter | CPT/HCPCS: 93970 ==

== ENCOUNTER → 2025-04-06 15:04 | Outpatient (REF) | payer OTHER, SELFPAY | LOC: RAD 15:04 | PROVIDERS: ATTENDING PHYSICIAN Family Medicine | DX: S81.802A Unspecified open wound, left lower leg, initial encounter (principal); I87.2 Venous insufficiency (chronic) (peripheral) | CPT/HCPCS: 93922; 93925 ==